=== PATIENT | male | born 1960 | race Caucasian/White ===

== ENCOUNTER 2016-04-09 17:20 | Inpatient (IN) | payer OTHER ==
[~2016-04-09] VITALS: Ht 175.3 cm; Wt 90.7 kg
[2016-04-09 17:20] VITALS: BP 155/94; PULSE 78; RESP 16; TEMP 98.7; O2SAT 99
[2016-04-09] MEDS ORDERED: ASPIRIN 325 MG TABLET PO ONE (18:00)
[2016-04-09] MEDS ORDERED: IPRATROPIUM/ALBUTEROL SULFATE 3 ML AMPUL.NEB INH ONE (18:00)
[2016-04-09] MEDS ORDERED: DEXAMETHASONE SOD PHOSPHATE 10 MG/ML VIAL IM ONE (18:00)
[2016-04-09 18:18] LABS: BASOPHILS # (AUTO) 0.1 K/uL (0.0-0.2); BASOPHILS % (AUTO) 1.3 % (0.0-2.0); EOSINOPHILS # (AUTO) 0.3 K/uL (0.0-0.4); EOSINOPHILS % (AUTO) 3.9 % (0.0-4.0); HEMATOCRIT 43.8 % (36-54); HEMOGLOBIN 14.6 g/dL (14.0-18.0); LYMPHOCYTES # (AUTO) 2.6 K/uL (1.0-5.5); LYMPHOCYTES % (AUTO) 33.4 % (20.5-51.5); MEAN CORPUSCULAR HEMOGLOBIN 29 pg (27-31); MEAN CORPUSCULAR HGB CONC 33 % (32-36); MEAN CORPUSCULAR VOLUME 86 fL (79.0-98.0); MONOCYTES # (AUTO) 0.6 K/uL (0.0-1.0); MONOCYTES % (AUTO) 7.5 % (1.7-9.3); NEUTROPHILS # (AUTO) 4.2 K/uL (1.8-7.7); NEUTROPHILS % (AUTO) 53.9 % (40.0-70.0); PLATELET COUNT (AUTO) 190 K/uL (130-430); RED BLOOD CELL COUNT(AUTO) 5.09 MIL/uL (4.2-6.2); RED CELL DISTRIBUTION WIDTH 13.2 % (9.0-15.0); WHITE BLOOD COUNT (AUTO) 7.9 K/uL (4.8-10.8)
[2016-04-09 18:21] LABS: CREATININE 1.24 mg/dL (0.55-1.30); POTASSIUM 3.9 mmol/L (3.5-5.1)
[2016-04-09 18:25] LABS: ALBUMIN 3.6 g/dL (3.4-4.8); TOTAL BILIRUBIN 0.2 mg/dL (0.0-1.0); TOTAL PROTEIN, SERUM 7.3 g/dL (6.4-8.3)
[2016-04-09] MEDS ORDERED: IBUP-2101 (19:27)
[2016-04-09] MEDS ORDERED: MORPHINE 4 MG/ML INJ. SYRINGE IVP ONE (19:30)
[2016-04-09] MEDS ORDERED: ONDANSETRON HCL 4 MG/2 ML VIAL IVP ONE (19:30)
[2016-04-09] MEDS ORDERED: NITROGLYCERIN 1 INCH (GM) OINT. TP ONE (19:45)
[2016-04-09] MEDS ORDERED: MORPHINE 4 MG/ML INJ. SYRINGE IVP PRN (20:15)
[2016-04-09] MEDS ORDERED: NITROGLYCERIN 0.4 MG TAB.SUBL SL PRN (20:15)
[2016-04-09] MEDS ORDERED: TEMAZEPAM 15 MG CAPSULE PO PRN (20:15)
[2016-04-09] MEDS ORDERED: ONDANSETRON HCL 4 MG/2 ML VIAL IVP PRN (20:15)
[2016-04-09] MEDS ORDERED: ACETAMINOPHEN 325 MG TABLET PO PRN (20:15)
[2016-04-09 20:43] LABS: INR 0.9 (0.80-1.20); PROTHROMBIN TIME 10.3 SECS (9.5-12.5)
[2016-04-09] MEDS ORDERED: ENOXAPARIN SODIUM 40 MG/0.4 ML SYRINGE SUBCUT SCH (21:00)
[2016-04-09] MEDS ORDERED: cloNIDine HCL 0.1 MG TABLET PO PRN (21:00)
[2016-04-09] MEDS ORDERED: LR 1,000 ML IV SCH (21:00)
[2016-04-09] MEDS ORDERED: LORazepam 1 MG TABLET PO PRN (21:00)
[2016-04-09] MEDS ORDERED: IPRATROPIUM/ALBUTEROL SULFATE 3 ML AMPUL.NEB INH PRN (21:00)
[2016-04-09] MEDS ORDERED: IOHEXOL 350 mgI/mL, 150 ML INFUS..BTL IV ONE (21:08)
[2016-04-09 22:00] VITALS: BP 137/82; PULSE 75; RESP 16; TEMP 96.6; O2SAT 95
[2016-04-09] MEDS ORDERED: PANTOPRAZOLE SODIUM 40 MG TAB PO ONE (22:00)
[2016-04-09 22:35] VITALS: BP 137/82; PULSE 75; RESP 16; TEMP 96.6; O2SAT 95
[2016-04-09 22:36] VITALS: BP 137/82; PULSE 75; RESP 16; TEMP 96.6; O2SAT 95
[2016-04-09] MEDS: ATORVASTATIN 20 MG TABLET PO SCH (22:50)
[2016-04-10 03:12] VITALS: BP 127/76; PULSE 78; RESP 18; TEMP 98; O2SAT 96
[2016-04-10 04:55] VITALS: BP 155/91; PULSE 89; RESP 18; TEMP 98.2; O2SAT 95
[2016-04-10 05:14] VITALS: BP 155/91; PULSE 89
[2016-04-10 07:30] LABS: BASOPHILS % (AUTO) 0.5 % (0.0-2.0); EOSINOPHILS % (AUTO) 0.1 % (0.0-4.0); HEMATOCRIT 41.5 % (36-54); HEMOGLOBIN 13.8 g/dL (14.0-18.0); LYMPHOCYTES # (AUTO) 1.3 K/uL (1.0-5.5); LYMPHOCYTES % (AUTO) 18.5 % (20.5-51.5); MEAN CORPUSCULAR HEMOGLOBIN 29 pg (27-31); MEAN CORPUSCULAR HGB CONC 33 % (32-36); MEAN CORPUSCULAR VOLUME 87 fL (79.0-98.0); MONOCYTES # (AUTO) 0.1 K/uL (0.0-1.0); MONOCYTES % (AUTO) 1.5 % (1.7-9.3); NEUTROPHILS # (AUTO) 5.9 K/uL (1.8-7.7); NEUTROPHILS % (AUTO) 79.4 % (40.0-70.0); PLATELET COUNT (AUTO) 182 K/uL (130-430); RED BLOOD CELL COUNT(AUTO) 4.79 MIL/uL (4.2-6.2); RED CELL DISTRIBUTION WIDTH 13.3 % (9.0-15.0); WHITE BLOOD COUNT (AUTO) 7.3 K/uL (4.8-10.8)
[2016-04-10 07:57] LABS: CHOLESTEROL 223 mg/dL (<200); HDL CHOLESTEROL 43 mg/dL (>45); LDL CHOLESTEROL 166 mg/dL (<100); TRIGLYCERIDES 63 mg/dL (30-150)
[2016-04-10 08:17] LABS: POTASSIUM 4.5 mmol/L (3.5-5.1)
[2016-04-10 08:18] LABS: CALCIUM 8.9 mg/dL (8.4-11.0); CREATININE 1.03 mg/dL (0.55-1.30)
[2016-04-10 08:19] LABS: ALBUMIN 3.2 g/dL (3.4-4.8); FREE T4 (FREE THYROXINE) 0.7 ng/dL (0.6-1.6); THYROID STIMULATING HORMONE 0.39 uIu/mL (0.34-4.82); TOTAL BILIRUBIN 0.3 mg/dL (0.0-1.0); TOTAL PROTEIN, SERUM 6.9 g/dL (6.4-8.3)
[2016-04-10] MEDS: *LOVENOX 1MG/KG Q12H/PHARMACY XX SCH ×2 (10:15→20:39)
[2016-04-10] MEDS: PANTOPRAZOLE SODIUM 40 MG TAB PO SCH (10:19)
[2016-04-10] MEDS: ASPIRIN 81 MG TABLET(ECOTRIN) PO SCH (10:19)
[2016-04-10] MEDS ORDERED: ENOXAPARIN SODIUM 100 MG/ML SYRINGE SUBCUT ONE (10:45)
[2016-04-10 12:17] VITALS: BP 136/72; PULSE 71; RESP 18; TEMP 97; O2SAT 96
[2016-04-10] MEDS ORDERED: CARVEDILOL 6.25 MG TABLET (COREG) PO ONE (14:15)
[2016-04-10] MEDS ORDERED: LORazepam 1 MG TABLET PO ONE (14:30)
[2016-04-10 16:22] VITALS: BP 130/74; PULSE 70; RESP 18; TEMP 97.2; O2SAT 95
[2016-04-10 20:09] VITALS: BP 118/67; PULSE 67; RESP 15; TEMP 98.8; O2SAT 94
[2016-04-10] MEDS: ATORVASTATIN 20 MG TABLET PO SCH (20:32)
[2016-04-10] MEDS: LORazepam 1 MG TABLET PO SCH (20:33)
[2016-04-10] MEDS: ENOXAPARIN SODIUM 100 MG/ML SYRINGE SUBCUT SCH (20:33)
[2016-04-10] MEDS: CARVEDILOL 6.25 MG TABLET (COREG) PO SCH (20:33)
[2016-04-11 01:19] VITALS: BP 129/71; PULSE 64; RESP 17; TEMP 96.8; O2SAT 95
[2016-04-11 04:37] VITALS: BP 134/73; PULSE 65; RESP 16; TEMP 96.4; O2SAT 95
[2016-04-11] MEDS: PANTOPRAZOLE SODIUM 40 MG TAB PO SCH (09:21)
[2016-04-11] MEDS: LORazepam 1 MG TABLET PO SCH (09:21)
[2016-04-11] MEDS: CARVEDILOL 6.25 MG TABLET (COREG) PO SCH (09:21)
[2016-04-11 11:40] VITALS: BP 119/60; PULSE 64; RESP 16; TEMP 97.2; O2SAT 98
[2016-04-11] MEDS: ASPIRIN 81 MG TABLET(ECOTRIN) PO SCH (13:37)
[2016-04-11] MEDS: ENOXAPARIN SODIUM 100 MG/ML SYRINGE SUBCUT SCH (13:37)
[2016-04-11 13:59] VITALS: BP 119/60; PULSE 64; RESP 16; TEMP 97.2
[2016-04-11 15:13] VITALS: BP 106/57; PULSE 113; RESP 19; TEMP 98; O2SAT 98
== END 2016-04-11 15:30 | disposition short-term general hospital (02) | DRG 282 ==
LOC: SED 17:20 → STU 19:43
PROVIDERS: ADMIT Internal Medicine; ATTEND Internal Medicine
DX: I21.3 ST elevation (STEMI) myocardial infarction of unspecified site (principal); I25.10 Atherosclerotic heart disease of native coronary artery without angina pectoris; Z95.1 Presence of aortocoronary bypass graft; F17.200 Nicotine dependence, unspecified, uncomplicated; I10 Essential (primary) hypertension; E78.5 Hyperlipidemia, unspecified; F17.210 Nicotine dependence, cigarettes, uncomplicated; Z83.3 Family history of diabetes mellitus; E78.00 Pure hypercholesterolemia, unspecified; Z79.82 Long term (current) use of aspirin; I24.9 Acute ischemic heart disease, unspecified
CPT/HCPCS: 36415; 71010; 71275; 80053; 80061; 83735-TC; 83880; 84439; 84443-TC; 84484; 85025; 85610-TC; 85730-TC; 93005; 93306; 94640; 96372; 96374; 96375; 99291; J1100; J1650; J2270; J2405; J7120; Q9967